=== PATIENT | male | born 1965 | race Caucasian/White ===

== ENCOUNTER 2018-02-25 07:50 | Day surgery (SDC) | payer MEDICARE, OTHER ==
[2018-02-22 09:30] LABS: BASOPHILS 0.5 % (0-2); HEMATOCRIT 43.8 % (42.0-54.0); HEMOGLOBIN 15.3 g/dL (13.5-17.5); IMMATURE GRANULOCYTES 0.2 % (0-5); LYMPHOCYTES 34.4 % (15-50); MCH 35.7 pg (26.0-34.0); MCHC 34.9 g/dL (31.0-37.0); MCV 102.3 fL (80.0-100.0); MEAN PLATELET VOLUME 8.9 fL (7.4-10.4); MONOCYTES 9.5 % (2-11); NEUTROPHILS 53.4 % (40-80); PLATELET COUNT 269 10x3/uL (130-400); RBC 4.28 10x6/uL (4.20-6.10); RDW 12.9 % (11.5-14.5); WBC 5.9 10x3/uL (4.8-10.8)
[2018-02-22 09:56] LABS: ALBUMIN 3.8 g/dL (3.4-5.0); ANION GAP 7.6 mmol/L (8-16); BILIRUBIN - TOTAL 0.6 mg/dL (0.2-1.3); CALCIUM 9.2 mg/dL (8.5-10.1); CARBON DIOXIDE 33.7 mmol/L (21.0-32.0); CREATININE - SERUM 1.2 mg/dL (0.6-1.3); POTASSIUM - SERUM 4.3 mmol/L (3.5-5.1); PROTEIN - SERUM 9.1 g/dL (6.4-8.2)
[~2018-02-25] VITALS: Ht 185.4 cm; Wt 107.5 kg
[2018-02-25] MEDS ORDERED: HYDROCHLOROT TAB 12. (09:04)
[2018-02-25] MEDS ORDERED: SMZ/TMP DS TAB 800 (09:05)
[2018-02-25] MEDS ORDERED: TRIUMEQ TABLET1 EACH (09:06)
[2018-02-25] MEDS ORDERED: ZITHROMAX600 MG (09:06)
[2018-02-25] MEDS ORDERED: FLUTICASONE PRO16 GM (09:07)
[2018-02-25] MEDS ORDERED: ZOFRAN4 MG PO (09:07)
[2018-02-25] MEDS ORDERED: OMNICEF300 MG (09:08)
[2018-02-25 09:31] VITALS: BP 160/105; Ht 185.4 cm; Wt 107.5 kg
[2018-02-25] MEDS ORDERED: HYDROCODON-ACE1 EAC7 PO (11:17)
== END 2018-02-25 12:10 | disposition home or self-care (01) ==
LOC: D.OPS 07:50 → D.PAN 08:00 → D.OPS 10:00
PROVIDERS: Anesthesiology
DX: K80.10 Calculus of gallbladder with chronic cholecystitis without obstruction (principal); B20 Human immunodeficiency virus [HIV] disease; Z01.812 Encounter for preprocedural laboratory examination

== ENCOUNTER 2019-06-03 12:09 | Inpatient (IN) | payer MEDICARE ==
[~2019-06-03] VITALS: Ht 185.4 cm; Wt 104.3 kg
[~2019-06-03 12:09] MED LIST: FLUTICASONE PRO16 GM; HYDROCHLOROT TAB 12.; HYDROCODON-ACE1 EAC7 PO; OMNICEF300 MG; SMZ/TMP DS TAB 800; TRIUMEQ TABLET1 EACH; ZITHROMAX600 MG; ZOFRAN4 MG PO
[2019-06-03] MEDS ORDERED: SMZ-TMP DS 800-1 TAB PO (13:27)
[2019-06-03] MEDS ORDERED: HYDROCHLOROTH12.5 M1 PO (13:29)
[2019-06-03] MEDS ORDERED: PROZAC40 MG PO (13:29)
[2019-06-03 13:59] VITALS: BP 120/80; Ht 185.4 cm; Wt 104.3 kg
--- NOTE | 2019-06-03 14:02 | NUR ---
TO ROOM [address] GARCIA. PT HAS SOME SHORTNESS OF BREATH. SATS 87-89 ON ROOM AIR. PT HAS BEEN PLACED ON 02 AT 2 LITERS, SATS 93%. ASSESSMENT PER ADMIT PACK.
[2019-06-03] MEDS ORDERED: GENVOYA (14:37)
[2019-06-03 17:06] VITALS: BP 149/95
[2019-06-03 17:13] LABS: BASOPHILS 0.3 % (0-2); EOSINOPHILS 0 % (0-7); HEMATOCRIT 42.7 % (42.0-54.0); HEMOGLOBIN 14.6 g/dL (13.5-17.5); IMMATURE GRANULOCYTES 0.2 % (0-5); LYMPHOCYTES 22.8 % (15-50); MCH 34.9 pg (26.0-34.0); MCHC 34.2 g/dL (31.0-37.0); MCV 102.2 fL (80.0-100.0); MEAN PLATELET VOLUME 9.2 fL (7.4-10.4); MONOCYTES 15.2 % (2-11); NEUTROPHILS 61.5 % (40-80); RBC 4.18 10x6/uL (4.20-6.10); RDW 13.1 % (11.5-14.5); WBC 6.3 10x3/uL (4.8-10.8)
[2019-06-03 17:26] LABS: ALBUMIN 3.4 g/dL (3.4-5.0); ANION GAP 13.5 mmol/L (8-16); BILIRUBIN - TOTAL 0.36 mg/dL (0.2-1.3); CALCIUM 8.4 mg/dL (8.5-10.1); CARBON DIOXIDE 27.2 mmol/L (21.0-32.0); CREATININE - SERUM 1.1 mg/dL (0.6-1.3); POTASSIUM - SERUM 3.7 mmol/L (3.5-5.1); PROTEIN - SERUM 8.3 g/dL (6.4-8.2)
[2019-06-03 17:32] LABS: PLATELET COUNT 195 10x3/uL (130-400)
[2019-06-03 20:00] VITALS: BP 129/79
--- NOTE | 2019-06-03 20:00 | NUR ---
ASSESSMENT PER FLOWSHEET. IV PATENT LEFT FOREARM OF NS AT 50CC'S/HR. RESTING QUIETLY DENIES NEEDS.
--- NOTE | 2019-06-03 22:00 | NUR ---
MEDS GIVEN PER MAR. RESTING QUIETLY DENIES NEEDS.
--- NOTE | 2019-06-04 | NUR ---
EYES CLOSED RESPIRATIONS WITH EASE AND UNLABORED.
--- NOTE | 2019-06-04 03:56 | NUR ---
UP AT ANANTH VOIDS FREELY DENIES NEEDS.
[2019-06-04 04:00] VITALS: BP 125/87
[2019-06-04 05:09] LABS: BASOPHILS 0.3 % (0-2); EOSINOPHILS 0.2 % (0-7); HEMATOCRIT 41.2 % (42.0-54.0); HEMOGLOBIN 13.8 g/dL (13.5-17.5); IMMATURE GRANULOCYTES 0.2 % (0-5); LYMPHOCYTES 28.6 % (15-50); MCH 34.8 pg (26.0-34.0); MCHC 33.5 g/dL (31.0-37.0); MEAN PLATELET VOLUME 9.4 fL (7.4-10.4); NEUTROPHILS 55.7 % (40-80); PLATELET COUNT 215 10x3/uL (130-400); RBC 3.96 10x6/uL (4.20-6.10); RDW 13.2 % (11.5-14.5); WBC 5.8 10x3/uL (4.8-10.8)
[2019-06-04 05:16] LABS: ALKALINE PHOSPHATASE 66 U/L (46-116); ALT (SGPT) 146 U/L (10-68); BILIRUBIN - TOTAL 0.38 mg/dL (0.2-1.3); CALC OSMOLALITY 270 mosm/kg (275-300); CALCIUM 8.2 mg/dL (8.5-10.1); CARBON DIOXIDE 30.9 mmol/L (21.0-32.0); CHLORIDE - SERUM 98 mmol/L (98-107); GLUCOSE 91 mg/dL (74-106); POTASSIUM - SERUM 3.4 mmol/L (3.5-5.1); PROTEIN - SERUM 8.1 g/dL (6.4-8.2); SODIUM 136 mmol/L (136-145); UREA NITROGEN 10 mg/dL (7-18); eGFR NON AFRICAN AMERICAN 82 mL/min (90-120)
--- NOTE | 2019-06-04 06:15 | NUR ---
K+ LEVEL=3.4 TREATED WITH 40 MEQ K+ PER Alexandre MCMAHAN. WILL RECHECK K+ LEVEL AT 1000.
--- NOTE | 2019-06-04 08:00 | NUR ---
PATIENT IN BED WITH IV INTACT. NO COMPLAINTS OR SIGNS OF DISTRESS. CALL LIGHT WITHIN REACH.
[2019-06-04 09:22] VITALS: BP 100/77
[2019-06-04 13:13] VITALS: BP 118/88
[2019-06-04 16:45] VITALS: BP 117/81
--- NOTE | 2019-06-04 18:45 | NUR ---
PATIENT IN BED WITH NO COMPLAINTS OR SIGNS OF DISTRESS. IV INTACT. CALL LIGHT WITHIN REACH.
[2019-06-04 19:46] VITALS: BP 107/76
--- NOTE | 2019-06-04 20:55 | NUR ---
LYING IN BED. ALERT AND ORIENTED X4. RESP EVEN AND NONLABORED. O2 @ 2L/NC. NONPROD COUGH NOTED. DENIES PAIN. ABD DISTENDED. BS PRESENT X4 QUADS. TELEMETRY SHOWS SR WITH RATE OF 78. NS @ 50 MLHR INFUSING IN LT FOREARM WITHOUT DIFF. NO DISTRESS. AMBULATORY. SR ELEVATED X2. CL IN REACH.
[2019-06-05] VITALS: BP 121/80
--- NOTE | 2019-06-05 01:10 | NUR ---
HAS RESTED WELL SO FAR TONIGHT. NO DISTRESS. CL IN REACH.
[2019-06-05 04:00] VITALS: BP 131/93
--- NOTE | 2019-06-05 06:46 | NUR ---
HAS HAD FREQUENT COUGHING SPELLS DURING THE NIGHT BUT DENIES NEEDS. NO DISTRESS. CL IN REACH.
[2019-06-05 06:53] LABS: BASOPHILS 0.5 % (0-2); HEMATOCRIT 39.9 % (42.0-54.0); HEMOGLOBIN 13.4 g/dL (13.5-17.5); IMMATURE GRANULOCYTES 0.2 % (0-5); LYMPHOCYTES 26.1 % (15-50); MCH 35.1 pg (26.0-34.0); MCHC 33.6 g/dL (31.0-37.0); MCV 104.5 fL (80.0-100.0); MEAN PLATELET VOLUME 9.5 fL (7.4-10.4); MONOCYTES 11.9 % (2-11); NEUTROPHILS 60.3 % (40-80); PLATELET COUNT 243 10x3/uL (130-400); RBC 3.82 10x6/uL (4.20-6.10); RDW 13.3 % (11.5-14.5)
[2019-06-05 07:27] LABS: ALKALINE PHOSPHATASE 76 U/L (46-116); ALT (SGPT) 173 U/L (10-68); BILIRUBIN - TOTAL 0.49 mg/dL (0.2-1.3); CALC OSMOLALITY 271 mosm/kg (275-300); CALCIUM 8.4 mg/dL (8.5-10.1); CARBON DIOXIDE 28.9 mmol/L (21.0-32.0); CHLORIDE - SERUM 100 mmol/L (98-107); CREATININE - SERUM 0.8 mg/dL (0.6-1.3); GLUCOSE 89 mg/dL (74-106); POTASSIUM - SERUM 3.2 mmol/L (3.5-5.1); PROTEIN - SERUM 7.8 g/dL (6.4-8.2); SODIUM 137 mmol/L (136-145); UREA NITROGEN 9 mg/dL (7-18); eGFR NON AFRICAN AMERICAN > 90 mL/min (90-120)
--- NOTE | 2019-06-05 08:00 | NUR ---
ASSESSMENT PER FLOW SHEET. PT IS WITHOUT DISTRESS.HE DENIES NEEDS.CALL LIGHT IN REACH.
[2019-06-05 08:42] VITALS: BP 123/83
[2019-06-05 12:08] LABS: BASOS 0 % (Not Estab.); CD4 - % CD4 POS. LYMPH 13.4 % (30.8-58.5); CD4 - ABSOLUTE CD4 HELPER 214 /uL (359-1519); CD4:8 - % CD8 POS LYMPH 62.5 % (12.0-35.5); CD4:8 - ABS CD8 SUPPRESSOR 1000 /uL (109-897); CD4:8 - CD4/CD8 RATIO 0.21 (0.92-3.72); EOS 0 % (Not Estab.); HEMATOCRIT 40.4 % (37.5-51.0); HEMATOLOGY COMMENTS Note: (()); HEMOGLOBIN 13.8 g/dL (13.0-17.7); LYMPHS 27 % (Not Estab.); LYMPHS (ABSOLUTE) 1.6 x10E3/uL (0.7-3.1); MCH 34.8 pg (26.6-33.0); MCHC 34.2 g/dL (31.5-35.7); MCV 102 fL (79-97); MONOCYTES 15 % (Not Estab.); MONOCYTES (ABSOLUTE) 0.9 x10E3/uL (0.1-0.9); NEUTROPHILS 58 % (Not Estab.); NEUTROPHILS (ABSOLUTE) 3.4 x10E3/uL (1.4-7.0); PLATELETS 225 x10E3/uL (150-450); RBC 3.97 x10E6/uL (4.14-5.80); RDW 14.3 % (12.3-15.4); WBC 5.9 x10E3/uL (3.4-10.8)
[2019-06-05 12:29] VITALS: BP 124/88
[2019-06-05 17:35] VITALS: BP 109/89
--- NOTE | 2019-06-05 17:51 | NUR ---
HAS BEEN WITHOUT NEEDS.PT REMAINS WITHOUT CHANGE FROM INITIAL SHIFT ASSESSMENT.CONT PLAN OF CARE
[2019-06-05 19:30] VITALS: BP 137/97
--- NOTE | 2019-06-05 21:00 | NUR ---
A/O WITH NO SIGNS OF ACUTE DISTRESS. IV TO THE LT FOREARM WITH NO REDNESS OR SWELLING NOTED. WEARS NC @2L NEEDED. DENIES NO NEEDS AT THIS TIME. CONTINUE WITH PLAN OF CARE.
[2019-06-06 00:30] VITALS: BP 142/84
[2019-06-06 05:00] VITALS: BP 131/89
[2019-06-06 07:10] LABS: BASOPHILS 0.2 % (0-2); EOSINOPHILS 1.5 % (0-7); HEMATOCRIT 40.1 % (42.0-54.0); HEMOGLOBIN 13.5 g/dL (13.5-17.5); IMMATURE GRANULOCYTES 0.2 % (0-5); LYMPHOCYTES 25.7 % (15-50); MCH 34.8 pg (26.0-34.0); MCHC 33.7 g/dL (31.0-37.0); MCV 103.4 fL (80.0-100.0); MEAN PLATELET VOLUME 9.3 fL (7.4-10.4); MONOCYTES 10.6 % (2-11); NEUTROPHILS 61.8 % (40-80); PLATELET COUNT 263 10x3/uL (130-400); RBC 3.88 10x6/uL (4.20-6.10); RDW 13.2 % (11.5-14.5); WBC 5.3 10x3/uL (4.8-10.8)
--- NOTE | 2019-06-06 07:30 | NUR ---
REPORT RECIEVED ASSUMED CARE. PATIENT IN BED WITH IV INTACT. NO COMPLAINTS OR SIGNS OF DISTRESS. EYES CLOSED RESTING QUIETLY. CALL LIGHT WITHIN REACH.
[2019-06-06 07:33] LABS: ALKALINE PHOSPHATASE 73 U/L (46-116); ALT (SGPT) 186 U/L (10-68); BILIRUBIN - TOTAL 0.62 mg/dL (0.2-1.3); CALC OSMOLALITY 273 mosm/kg (275-300); CALCIUM 8.8 mg/dL (8.5-10.1); CARBON DIOXIDE 27.4 mmol/L (21.0-32.0); CHLORIDE - SERUM 101 mmol/L (98-107); CREATININE - SERUM 0.8 mg/dL (0.6-1.3); GLUCOSE 90 mg/dL (74-106); POTASSIUM - SERUM 3.3 mmol/L (3.5-5.1); PROTEIN - SERUM 8.2 g/dL (6.4-8.2); SODIUM 138 mmol/L (136-145); UREA NITROGEN 8 mg/dL (7-18); eGFR NON AFRICAN AMERICAN > 90 mL/min (90-120)
[2019-06-06 09:01] VITALS: BP 129/96
[2019-06-06] MEDS ORDERED: MUCINEX600 MG PO (11:47)
[2019-06-06] MEDS ORDERED: IPRAT-ALBUT 0.5-3 ML UPD (11:47)
[2019-06-06] MEDS ORDERED: TESSALON PERLE100 MG PO (11:47)
[2019-06-06] MEDS ORDERED: FLORAJEN3 CAPS460 MG PO (11:49)
[2019-06-06] MEDS ORDERED: FLUTICASONE PRO16 GM NASAL (11:49)
[2019-06-06] MEDS ORDERED: CLEOCIN HCL300 MG PO (11:53)
--- NOTE | 2019-06-06 12:33 | MORECARE ---
CASE MANAGEMENT DISCHARGE SUMMARY PATIENT: HAILEY MITTAL UNIT: [id number] ADM DATE: 06/03/19 AGE: 54 : 61 SEX: M ROOM/BED: D.2214 AUTHOR: PEEWEE FOREMAN PHYSICIAN: REFERRING PHYSICIAN: LEIGHTON OBRIEN MD DATE OF SERVICE: 06/06/19 Discharge Plan Patient Name: HAILEY MITTAL Facility: [facility]:[place] : 1965 Planned Disposition: Home or Self Care Anticipated Discharge Date: Discharge Date: Expected LOS: Initial Reviewer: [email or web address] Initial Review Date: 06/03/2019 Generated: 06/06/19 1:33 pm External Providers External Provider: Marta Next Contact Date: Service Request Date: Service Type: Resolution: Reviewer: Comments: Patient Name: HAILEY MITTAL Page [phone] at 1233 All edits/amendments must be made on the electronic document DICTATION DATE: 06/06/19 1233 PASTE THINNER: KELSEA 06/06/19 1233 RPT#: [id number] ID DATE: STATUS: ADM IN [facility] [address] [place] [address] END OF REPORT
--- NOTE | 2019-06-06 12:40 | MORECARE ---
CASE MANAGEMENT DISCHARGE SUMMARY PATIENT: HAILEY MITTAL UNIT: [id number] ADM DATE: 06/03/19 AGE: 54 : 61 SEX: M ROOM/BED: D.2214 AUTHOR: KELLENDOC PHYSICIAN: REFERRING PHYSICIAN: LEIGHTON OBRIEN MD DATE OF SERVICE: 06/06/19 Discharge Plan Patient Name: HAILEY MITTAL Facility: [facility]:[place] : 1965 Planned Disposition: Home or Self Care Anticipated Discharge Date: Discharge Date: Expected LOS: Initial Reviewer: [email or web address] Initial Review Date: 06/03/2019 Generated: 06/06/19 1:40 pm Comments DCP- Discharge Planning Updated by [email or web address]: Tammy Marie on 06/06/19 11:[address] imm served and explained DCP- Discharge Planning Updated by [id number]: Tammy Marie on 06/06/19 11:[address] Patient Name: HAILEY MITTAL Admission Status: Urgent Accout number: [id number] Admission Date: 06-03-2019 : 1965 Admission Diagnosis: Attending: FABIO Current LOS: 3 Anticipated DC Date: Planned Disposition: Home or Self Care Primary Insurance: Plated Discharge Planning Comments: CM met with patient to complete initial dc planning assessment. CM educated patient on the CM role and verbal consent given by patient to complete assessment. Patient lives at home with his partner. At discharge patient plans to return home and feels this is a safe discharge. CM discussed availability of home health, rehab services, and medical equipment. He has home O2 that he wears at night he gets from [facility]. [facility] will deliver his nebulizer to the hospital before he leaves today. Patient denied known discharge needs at this time. CM will continue to follow and will assist as needed with dc plans/needs. Production Scheduler: Tammy Marie DCPIA - Discharge Planning Initial Assessment Updated by [email or web address]: Tammy Marie on 06/06/19 12:33 pm * Is the patient Alert and Oriented? Yes * How many steps to enter\exit or inside your home? * PCP [facility] * Pharmacy [facility] * Preadmission Environment Home with Family * ADLs Independent * Equipment Oxygen * List name and contact numbers for known caregivers / representatives who currently or will assist patient after discharge: OLYA [phone] * Verbal permission to speak to the caregivers and representatives has been obtained from the patient. Yes * Community resources currently utilized None * Additional services required to return to the preadmission environment? Yes * Can the patient safely return to the preadmission environment? Yes * Has this patient been hospitalized within the prior 30 days at any hospital? No Coverage Notice Reviewer: [id number] Michael Marie Notice Issued Date-Time: 06/06/2019 12:39 Notice Type: IM Discharge Notice Notice Delivered To: Patient Relationship to Patient: [employer] Name: Delivery Method: HAND - Hand Delivered Mya Days: Prior Verbal Notification: Recipient Understood Notice: Yes Recipient Signature: Yes Med Rec Note Co-signed by Attending: Coverage Notice Comment: Last DP export: 06/06/19 11:33 Patient Name: HAILEY MITTAL Page [phone] at 1240 All edits/amendments must be made on the electronic document DICTATION DATE: 06/06/19 1240 RESEARCH TECH: KELSEA 06/06/19 1240 RPT#: [id number] DC DATE: STATUS: ADM IN [facility] [address] [place] [address] END OF REPORT
[2019-06-06 12:59] VITALS: BP 122/93
--- NOTE | 2019-06-06 13:45 | NUR ---
PATIENT RECIEVED DC INSTRUCTIONS AT THIS TIME. NO QUESTIONS. EXPLAINED TO PICK MEDS UP AT PHARMACY. VERBALIZED UNDERSTANDING. IV REMOVED WITH CATH TIP INTACT. ESCORTED PATIENT OUT OF HOSPITAL VIA WC TO PRIVATE VEHICLE WITH PERSONAL BELONGINGS.
--- NOTE | 2019-06-07 15:54 | MORECARE ---
CASE MANAGEMENT DISCHARGE SUMMARY PATIENT: HAILEY MITTAL UNIT: [id number] ADM DATE: 06/03/19 AGE: 54 : 61 SEX: M ROOM/BED: D.2214 AUTHOR: PEEWEE FOREMAN PHYSICIAN: REFERRING PHYSICIAN: LEIGHTON OBRIEN MD DATE OF SERVICE: 06/07/19 Discharge Plan Patient Name: HAILEY MITTAL Facility: [facility]:[place] : 1965 Planned Disposition: Home or Self Care Anticipated Discharge Date: 06/06/19 Discharge Date: 06/06/2019 Expected LOS: 3 Initial Reviewer: [email or web address] Initial Review Date: 06/03/2019 Generated: 06/07/19 4:54 pm Comments DCP- Discharge Planning Updated by [email or web address]: Tammy Marie on 06/06/19 11:[address] imm served and explained DCP- Discharge Planning Updated by [id number]: Tammy Marie on 06/06/19 11:[address] Patient Name: HAILEY MITTAL Admission Status: Urgent Accout number: [id number] Admission Date: 06-03-2019 : 1965 Admission Diagnosis: Attending: FABIO Current LOS: 3 Anticipated DC Date: Planned Disposition: Home or Self Care Primary Insurance: [employer] Discharge Planning Comments: CM met with patient to complete initial dc planning assessment. CM educated patient on the CM role and verbal consent given by patient to complete assessment. Patient lives at home with his partner. At discharge patient plans to return home and feels this is a safe discharge. CM discussed availability of home health, rehab services, and medical equipment. He has home O2 that he wears at night he gets from [facility]. [facility]. [facility] will deliver his nebulizer to the hospital before he leaves today. Patient denied known discharge needs at this time. CM will continue to follow and will assist as needed with dc plans/needs. Lay Out Former: Tammy Marie DCPIA - Discharge Planning Initial Assessment Updated by [id number]: Tammy Marie on 06/06/19 12:33 pm * Is the patient Alert and Oriented? Yes * How many steps to enter\exit or inside your home? * PCP [facility] * Pharmacy [facility] * Preadmission Environment Home with Family * ADLs Independent * Equipment Oxygen * List name and contact numbers for known caregivers / representatives who currently or will assist patient after discharge: OLYA [phone] * Verbal permission to speak to the caregivers and representatives has been obtained from the patient. Yes * Community resources currently utilized None * Additional services required to return to the preadmission environment? Yes * Can the patient safely return to the preadmission environment? Yes * Has this patient been hospitalized within the prior 30 days at any hospital? No Coverage Notice Reviewer: [id number] Michael Marie Notice Issued Date-Time: 06/06/2019 12:39 Notice Type: IM Discharge Notice Notice Delivered To: Patient Relationship to Patient: [employer] Name: Delivery Method: HAND - Hand Delivered Mya Days: Prior Verbal Notification: Recipient Understood Notice: Yes Recipient Signature: Yes Med Rec Note Co-signed by Attending: Coverage Notice Comment: Reviewer: [email or web address] Michael Marie Notice Issued Date-Time: 06/06/2019 12:30 Notice Type: Patient Choice Letter Notice Delivered To: Patient Relationship to Patient: [employer] Name: Delivery Method: HAND - Hand Delivered Mya Days: Prior Verbal Notification: Recipient Understood Notice: Yes Recipient Signature: Yes Med Rec Note Co-signed by Attending: Coverage Notice Comment: Last DP export: 06/06/19 11:40 Patient Name: HAILEY MITTAL Page [id number] at 1554 All edits/amendments must be made on the electronic document DICTATION DATE: 06/07/191553 HEEL SPRAYER FIRST: KELSEA 06/07/191553 RPT#: [id number] DC DATE:06/06/19 STATUS: DIS IN [facility] [address] [place] [address] END OF REPORT
== END 2019-06-06 15:38 | disposition home or self-care (01) | DRG 974 ==
LOC: OBSVTIME → D.OPS 12:09 → D.MS 12:09 → UNDOADMOB 12:09 → OBSVTIME 12:09 → D.MS 16:53 → EDSTATUS 06-09 11:11
PROVIDERS: Family Medicine; ADMIT Family Medicine; ATTEND Family Medicine
DX: J18.9 Pneumonia, unspecified organism (principal); J96.01 Acute respiratory failure with hypoxia; B20 Human immunodeficiency virus [HIV] disease; E87.1 Hypo-osmolality and hyponatremia; E66.9 Obesity, unspecified; Z68.30 Body mass index [BMI] 30.0-30.9, adult; E88.09 Other disorders of plasma-protein metabolism, not elsewhere classified; E87.6 Hypokalemia

== ENCOUNTER → 2019-09-04 08:16 | Outpatient (CLI) | payer MEDICARE ==
[2019-06-03 13:59] VITALS: BMI 30.3
[~2019-09-04 08:16] MED LIST changes: +CLEOCIN HCL300 MG PO; +FLORAJEN3 CAPS460 MG PO; +FLUTICASONE PRO16 GM NASAL; +GENVOYA; +HYDROCHLOROTH12.5 M1 PO; +IPRAT-ALBUT 0.5-3 ML UPD; +MUCINEX600 MG PO; +PROZAC40 MG PO; +SMZ-TMP DS 800-1 TAB PO; +TESSALON PERLE100 MG PO
== END | disposition home or self-care (01) ==
LOC: D.RT 08:16
PROVIDERS: ATTEND Internal Medicine Pulmonary Disease
DX: R06.09 Other forms of dyspnea (principal)

== ENCOUNTER → 2019-09-11 11:15 | Outpatient (CLI) | payer MEDICARE ==
[2019-06-03 13:59] VITALS: BMI 30.3
== END | disposition home or self-care (01) ==
LOC: D.RAD 11:15
PROVIDERS: ATTEND Nurse Practitioner
DX: I10 Essential (primary) hypertension (principal)